=== PATIENT | female | born 2000 | race Caucasian/White ===

== ENCOUNTER → 2021-03-07 | Outpatient (CLI) | payer BC | LOC: KOH-I 15:15 | DX: R06.02 Shortness of breath (principal) | CPT/HCPCS: 71046 ==

== ENCOUNTER → 2021-10-18 | Outpatient (CLI) | payer BC | LOC: KOH-I 09:33 | DX: R10.13 Epigastric pain (principal) | CPT/HCPCS: 76700 ==

== ENCOUNTER → 2021-12-05 | Outpatient (CLI) | payer BC | LOC: US 09:52 | DX: R22.32 Localized swelling, mass and lump, left upper limb (principal) | CPT/HCPCS: 76641-LT ==